=== PATIENT | female | born 1985 | race Caucasian/White ===

== ENCOUNTER 2017-09-26 00:54 | Inpatient (IN) | payer MEDICAID ==
[~2017-09-26] VITALS: Ht 154.9 cm; Wt 56.7 kg
[2017-09-26 01:23] LABS: HEMATOCRIT 38.6 % (36.0-48.0); HEMOGLOBIN 13.1 g/dL (12-16); MCH 27.7 pg (26.0-34.0); MCHC 33.9 g/dL (31.0-37.0); MCV 81.6 fL (80.0-100.0); MEAN PLATELET VOLUME 11.5 fL (7.4-10.4); RBC 4.73 10x6/uL (4.00-5.40); RDW 16.7 % (11.5-14.5); WBC 16.6 10x3/uL (4.8-10.8)
[2017-09-26 02:38] LABS: UDS - AMPHET POSITIVE QUAL (NEGATIVE); UDS - BARB NEGATIVE QUAL (NEGATIVE); UDS - BENZO NEGATIVE QUAL (NEGATIVE); UDS - COCAINE NEGATIVE QUAL (NEGATIVE); UDS - OPIATE NEGATIVE QUAL (NEGATIVE); UDS - PCP NEGATIVE QUAL (NEGATIVE); UDS - THC POSITIVE QUAL (NEGATIVE)
[2017-09-26 07:57] LABS: HIV 1 & 2- RAPID SCREEN NEGATIVE (NEGATIVE)
[2017-09-26 08:20] VITALS: BP 141/98
[2017-09-26 08:25] VITALS: BP 134/87
[2017-09-26 12:40] VITALS: Ht 154.9 cm; Wt 56.7 kg
[2017-09-26 16:55] VITALS: BP 152/84
[2017-09-26 19:40] VITALS: BP 135/84
[2017-09-27 09:15] VITALS: BP 132/84
[2017-09-27 20:09] VITALS: BP 143/86
[2017-09-28 06:13] LABS: RAPID PLASMA REAGIN Non Reactive (Non Reactive)
[2017-09-28 08:05] VITALS: BP 115/72
[2017-09-28 19:11] LABS: RUBELLA IGG 2.82 index (Immune >0.99)
== END 2017-09-28 13:10 | disposition home or self-care (01) | DRG 774 ==
LOC: D.LD 00:54
PROVIDERS: Obstetrics & Gynecology
PROC: 10D07Z6 Extraction of Products of Conception, Vacuum, Via Natural or Artificial Opening (ICD-10-PCS; principal; 2017-09-26)
PROC: 0UQMXZZ Repair Vulva, External Approach (ICD-10-PCS; 2017-09-26)
DX: O98.42 Viral hepatitis complicating childbirth (principal); O99.324 Drug use complicating childbirth; B19.20 Unspecified viral hepatitis C without hepatic coma; F15.10 Other stimulant abuse, uncomplicated; O70.0 First degree perineal laceration during delivery; Z3A.40 40 weeks gestation of pregnancy; Z37.0 Single live birth; Z87.891 Personal history of nicotine dependence

== ENCOUNTER 2019-04-09 16:42 | Emergency (ER) | payer MEDICAID ==
[~2019-04-09] VITALS: Ht 154.9 cm; Wt 54.5 kg
[2019-04-09 17:00] VITALS: Ht 154.9 cm; Wt 54.5 kg
[2019-04-09 17:22] LABS: APPEARANCE SL CLDY (CLEAR); BILIRUBIN NEGATIVE (NEGATIVE); COLOR YELLOW (YELLOW); GLUCOSE NEGATIVE (NEGATIVE); KETONE MODERATE mg/dL (NEGATIVE); NITRITE POSITIVE (NEGATIVE); PROTEIN 1+ mg/dL (NEGATIVE); UROBILINOGEN NORMAL (NORMAL)
[2019-04-09 17:25] LABS: EPITHELIAL CELLS 0-5 /hpf (0-5)
[2019-04-09 17:26] LABS: BACTERIA MODERATE /hpf (NONE SEEN)
[2019-04-09 18:03] LABS: BASOPHILS 0.1 % (0-2); EOSINOPHILS 0.4 % (0-7); HEMATOCRIT 33.9 % (36.0-48.0); HEMOGLOBIN 11.9 g/dL (12-16); IMMATURE GRANULOCYTES 0.3 % (0-5); LYMPHOCYTES 13.1 % (15-50); MCH 28.1 pg (26.0-34.0); MCHC 35.1 g/dL (31.0-37.0); MCV 80.1 fL (80.0-100.0); MEAN PLATELET VOLUME 9.3 fL (7.4-10.4); MONOCYTES 12.9 % (2-11); NEUTROPHILS 73.2 % (40-80); RBC 4.23 10x6/uL (4.00-5.40); RDW 13.9 % (11.5-14.5); WBC 14.8 10x3/uL (4.8-10.8)
[2019-04-09 18:04] LABS: PLATELET COUNT 319 10x3/uL (130-400)
[2019-04-09 18:16] LABS: ALBUMIN 2.6 g/dL (3.4-5.0); ALKALINE PHOSPHATASE 76 U/L (46-116); ALT (SGPT) 61 U/L (10-68); BILIRUBIN - TOTAL 0.49 mg/dL (0.2-1.3); CALC OSMOLALITY 263 mosm/kg (275-300); CALCIUM 8.1 mg/dL (8.5-10.1); CHLORIDE - SERUM 100 mmol/L (98-107); CREATININE - SERUM 0.4 mg/dL (0.6-1.3); GLUCOSE 107 mg/dL (74-106); PROTEIN - SERUM 7.1 g/dL (6.4-8.2); SODIUM 133 mmol/L (136-145); UREA NITROGEN 6 mg/dL (7-18); eGFR NON AFRICAN AMERICAN > 90 mL/min (90-120)
[2019-04-09] MEDS ORDERED: TORADOL10 MG PO (20:07)
[2019-04-09] MEDS ORDERED: SULFAMETHOXAZOL1 TA2 PO (20:07)
[2019-04-09] MEDS ORDERED: ZOFRAN4 MG PO (20:07)
[2019-04-09 20:30] LABS: HCG URINE NEGATIVE (NEGATIVE)
[2019-04-09 20:45] VITALS: BP 124/69
== END 2019-04-09 20:45 | disposition home or self-care (01) ==
LOC: D.ER 16:42
PROVIDERS: Family Medicine
DX: N39.0 Urinary tract infection, site not specified (principal); N12 Tubulo-interstitial nephritis, not specified as acute or chronic; N83.201 Unspecified ovarian cyst, right side